=== PATIENT | female | born 1955 | race American Indian/Alaskan Native ===

== ENCOUNTER 2018-06-29 06:46 | Day surgery (SDC) | payer MEDICARE ==
[~2018-06-29 06:46] MED LIST: TETRACAINE 0.5% OD SCH
--- NOTE | 2018-06-29 08:37 | Anesthesia Day of Surgery ---
Anesthesia Day of Surgery - Day of Surgery Patient Examined: Yes Patient H&P Reviewed: Yes Patient is NPO: Yes
--- NOTE | 2018-06-29 08:37 | Anesthesia Consultation ---
Anesthesia Consult and Med Hx Date of service: 06/29/18 - Airway Anesthetic Teeth Evaluation: Edentulous ROM Head & Neck: Adequate Mental/Hyoid Distance: Adequate Mallampati Class: Class II Intubation Access Assessment: Probably Good - Pulmonary Exam CTA: Yes - Cardiac Exam Cardiac Exam: RRR - Pre-Operative Health Status ASA Pre-Surgery Classification: ASA3 Proposed Anesthetic Plan: MAC - Pulmonary Hx Smoking: Yes (5 CIG/DAY) Hx Respiratory Symptoms: No - Cardiovascular System Hx Hypertension: Yes Hx Heart Attack/AMI: Yes ("many years ago") Hx Percutaneous Transluminal Coronary Angioplasty (PTCA): No Hx Cardia Arrhythmia: No - Central Nervous System Hx Neuromuscular Disorder: Yes (peripheral neuropathy) CVA: Yes ("many years ago") - Gastrointestinal Hx Gastroesophageal Reflux Disease: No - Endocrine Hx Renal Disease: No Hx Liver Disease: No Hx Non-Insulin Dependent Diabetes: Yes Hx Thyroid Disease: No - Other Systems Hx Obesity: No - Additional Comments Anesthesia Medical History Comments: Patient reports occasional use of sublingual NTG for angina. States that she follows with PCP and has had cardiac workup within the last 12 months. No orthopnea, PND, peripheral edema, MUSTAFA. Approx 4 mets functional capacity. No evidence of acute decompensation.
[2018-06-29] MEDS: AK-Dilate OD SCH ×3 (08:45→08:55)
[2018-06-29] MEDS: MYDRIACYL OD SCH ×3 (08:45→08:55)
[2018-06-29] MEDS: VIGAMOX OD SCH ×3 (08:45→08:55)
[2018-06-29] MEDS ORDERED: VERSED ONE (09:05)
[2018-06-29] MEDS ORDERED: SUBLIMAZE ONE (09:06)
[2018-06-29] MEDS ORDERED: DIAMOX PO NR (10:19)
[2018-06-29] MEDS ORDERED: PRED FORTE 1% OD NR (10:19)
--- NOTE | 2018-06-29 10:20 | Operative Report ---
Operative Report Operative Report: PATIENT'S NAME: DATE OF : DATE OF SURGERY: 06/29/2018 PREOPERATIVE DIAGNOSIS: Cataract right eye POSTOPERATIVE DIAGNOSIS: Same OPERATIVE PROCEDURE: Phacoemulsification with intraocular lens implantation, right eye SURGEON: Benita Baker M.D. SENIOR ASP NET DEVELOPER SURGEON: Ethel Lens: [id number] 24.0 D ANESTHESIA: Monitored anesthesia care in combination with topical and intracameral anesthesia because of the established specific risk of reflux, arrhythmias, or anxiety attacks associated with ocular manipulation, as well as the difficulty of the radiology equipment servicer to manage such potentially catastrophic events while simultaneously attempting to complete the surgical procedure and was deemed necessary for the patient's safety to have an Blueprint Assembler present during the procedure whenever possible. An Blueprint Assembler was utilized to regulate the intravenous sedation of the patient so the patient was cooperative yet not asleep in order for the patient to successfully maintain fixation of the eye on the operating light of the microscope. COMPLICATIONS: No surgical complications No blood loss. ALLERGIES: No known drug allergies PROGNOSIS: Excellent INDICATIONS FOR SURGERY: The patient is undergoing surgery in the hopes of eliminating or improving these visual difficulties. PROCEDURE: After arriving at the surgery center, the patient was given topical anesthetic and dilating drops, as noted in the record. The patient was then taken into the operating room and given more anesthetic drops. The eyelids, lashes, and lid margins were scrubbed with Betadine solution, and the patient was draped. The Nurse Blueprint Assembler administered IV sedation and monitored the patient during the procedure. The eye was then fixated with a 0.12, and a stab incision was made in the peripheral clear cornea into the anterior chamber. This was made on my left side. Viscoelastic was next used to fill the anterior chamber. The eye was once again fixated with the 0.12 forceps and a keratome was used make an incision in clear cornea peripherally on my right hand side temporally. The capsule forceps were used to open the central anterior capsule and then make a continuous round capsulotomy. Hydrodissection was carried out utilizing a cannula and balanced salt solution to delineate the cortical material from the capsule and the nucleus from the cortical material. The phaco tip was introduced into the eye and used to remove the anterior cortical material in the area of the capsulotomy. Then the phaco tip was buried into the nucleus, and a chopping instrument was introduced into the eye and used to provide countertraction in the nucleus between this instrument and the phaco tip fracturing the nucleus. This procedure was repeated multiple times, providing multiple small segments of the lens, and then the phaco tip was used to remove each of these segments. An I/A tip was then used to remove the remaining cortex. The anterior chamber was refilled with viscoelastic. An one-piece, acrylic intraocular lens was then placed into an inserting cartridge. The tip of the inserting cartridge was introduced into the keratome incision and into the anterior chamber. The implant was gently advanced through the cartridge and into the eye, where it unfolded, and both haptics were placed in the capsular bag, where it centered nicely and appeared to be well fixated. After placement of the intraocular lens, the I~and~A handpiece was placed back into the eye and used to remove the viscoelastic, including viscoelastic that was behind the optic of the intraocular lens. The anterior chamber was then filled with balanced salt solution, and hydration of the wound was used to cause swelling of the wound and more appropriate watertight closure. When the wound was found to be firm, the patient was asked to comment on how bright the light was. If there was no light perception at all or if the light was substantially dimmer than during the rest of the surgery, the amount of fluid in the eye was decompressed to lower the intraocular pressure until the patient could see the b right light again. This was done to avoid any damage or decreased blood flow to the optic nerve. MEDICATIONS APPLIED AT END OF SURGERY: One drop of Pred Forte and Vigamox The patient was given a shield to wear at night and was instructed not to rub or push on the eye. DISCHARGE SUMMARY: The patient was released in stable condition. The patient and those with the patient were given a written sheet of postoperative instructions and counseling on any abnormal laboratory studies. The patient is to see us tomorrow for follow-up in the office and is to call immediately for any difficulties. Benita Baker M.D. Date
--- NOTE | 2018-06-29 10:21 | Short Stay Summary ---
Short Stay Documentation Date of service: 06/29/18 - History H&P: obtained from office - Allergies and Medications Current Medications: Allergies No Known Allergies Allergy (Verified 06/28/18 17:27) Home Medications Medication Instructions Recorded Confirmed Last Taken Type Canagliflozin [Invokana] 300 mg PO DAILY 06/28/18 06/28/18 06/28/18 History Ibuprofen [Motrin] 800 mg PO Q8HR PRN 06/28/18 06/28/18 06/28/18 History Insulin Lispro [Humalog 100 0 units SQ AC 06/28/18 06/28/18 06/28/18 History UNITS/ML Kwikpen] Levothyroxine [Synthroid] 150 mcg PO QAM 06/28/18 06/28/18 06/28/18 History Metformin HCl [Glucophage] 1,000 mg PO BID 06/28/18 06/28/18 06/28/18 History Metoprolol [Lopressor TAB] 50 mg PO BID 06/28/18 06/28/18 06/28/18 History Nitroglycerin [Nitrostat] 0.4 mg SL Q5M PRN 06/28/18 06/29/18 06/29/18 07:30 History Pregabalin [Lyrica] 150 mg PO BID 06/28/18 06/28/18 06/28/18 History amLODIPine [Norvasc] 10 mg PO DAILY 06/28/18 06/28/18 06/28/18 History cloNIDine [Catapres] 0.1 mg PO QHS 06/28/18 06/28/18 06/28/18 History glipiZIDE XL [Glucotrol Xl] 2.5 mg PO QAM 06/28/18 06/28/18 06/28/18 History Active Medications Acetazolamide (Diamox) 500 mg PO ONCE ONE Stop: 06/29/18 10:20 Moxifloxacin HCl (Vigamox) 1 drops OD Q5MIN FAVIO Stop: 06/29/18 23:59 Last Admin: 06/29/18 08:55 Dose: 1 drops Documented by: Phenylephrine HCl (Ak-Dilate) 1 drops OD Q5MIN FAVIO Stop: 06/29/18 23:59 Last Admin: 06/29/18 08:55 Dose: 1 drops Documented by: Prednisolone Acetate (Pred Forte 1%) 1 drops OD ONCE ONE Stop: 06/29/18 10:20 Tetracaine HCl (Tetracaine 0.5%) 1 drops OD Q5M FAVIO Stop: 06/29/18 23:59 Last Admin: 06/29/18 08:45 Dose: 1 drops Documented by: Tropicamide (Mydriacyl) 1 drops OD Q5MIN FAVIO Stop: 06/29/18 23:59 Last Admin: 06/29/18 08:55 Dose: 1 drops Documented by: - Brief post op/procedure progress note Date of procedure: 06/29/18 Pre-op diagnosis: right cataract Post-op diagnosis: same Procedure: Phacoemulsification with intraocular lens insertion right eye Anesthesia: MAC, regional Surgeon: TAMI STALLINGS Estimated blood loss: none Pathology: none Condition: stable - Disposition Condition at discharge: Good Disposition: DC-01 TO HOME OR SELFCARE - Discharge Diagnoses (1) Cortical age-related cataract of right eye Status: Resolved Short Stay Discharge Plan Follow up with: MICKEY BUI MD [Primary Care Provider] - 7 Days Forms: Outpatient Surgery DC Inst.
--- NOTE | 2018-06-29 12:15 | Post Anesthesia Evaluation ---
- Post Anesthesia Evaluation Patient Participated: Yes Airway Patent: Yes Stable Respiratory Function: Yes Nausea/Vomiting: No Temp > 96.8F: Yes Pain Manageable: Yes Adequeate Hydration: Yes Anesthesia Complications: No
[2018-06-29 13:49] VITALS: BP 123/81
[2018-06-29] MEDS ORDERED: PRED FORTE 1% ONE (14:05)
[2018-06-29] MEDS ORDERED: DIAMOX ONE (14:06)
== END 2018-06-29 11:00 | disposition home or self-care (01) ==
LOC: OR 06:46
DX: E11.36 Type 2 diabetes mellitus with diabetic cataract (principal); H25.011 Cortical age-related cataract, right eye; E11.42 Type 2 diabetes mellitus with diabetic polyneuropathy; I10 Essential (primary) hypertension; I25.2 Old myocardial infarction; F17.210 Nicotine dependence, cigarettes, uncomplicated; M19.90 Unspecified osteoarthritis, unspecified site; Z98.890 Other specified postprocedural states; Z79.899 Other long term (current) drug therapy; Z79.84 Long term (current) use of oral hypoglycemic drugs; Z79.4 Long term (current) use of insulin; Z86.73 Personal history of transient ischemic attack (TIA), and cerebral infarction without residual deficits
CPT/HCPCS: 66984; 82962; J2250; J3010; V2632